=== PATIENT | male | born 1970 | race Caucasian/White ===

== ENCOUNTER 2018-10-25 12:11 | Emergency (ER) | payer OTHER ==
[~2018-10-25] VITALS: Ht 154.9 cm; Wt 63.5 kg
[2018-10-25 12:20] VITALS: BP 141/91
--- NOTE | 2018-10-25 12:53 | NUR ---
MEDICALLY CLEARED FOR BOOKING. D/C TO PD OFFICERS IN STABLE CONDITION.
== END 2018-10-25 12:56 ==
LOC: ER 12:14
DX: R07.89 Other chest pain (principal); I10 Essential (primary) hypertension